=== PATIENT | female | born 1990 | race Caucasian/White ===

== ENCOUNTER 2021-07-03 17:31 | Emergency (ER) | payer SELFPAY ==
[~2021-07-03] VITALS: Ht 167.6 cm; Wt 118.3 kg
[2021-07-03 17:50] VITALS: BP 147/88
== END 2021-07-03 18:54 | disposition left against medical advice (07) ==
LOC: M ED 17:31
DX: Z53.21 Procedure and treatment not carried out due to patient leaving prior to being seen by health care provider (principal)

== ENCOUNTER 2022-11-08 08:55 | Emergency (ER) | payer OTHER, SELFPAY ==
[~2022-11-08] VITALS: Ht 167.6 cm; Wt 103.5 kg
[2022-11-08] MEDS ORDERED: METF500T13 (09:17)
[2022-11-08] MEDS ORDERED: CEFD300C41 (09:17)
[2022-11-08] MEDS ORDERED: PRED20TA (09:17)
[2022-11-08] MEDS ORDERED: NALT50TA4 (09:17)
[2022-11-08] MEDS ORDERED: LEXA1TAB2 (09:17)
[2022-11-08] MEDS ORDERED: NS 1,000 ML IV ONE (11:30)
[2022-11-08] MEDS ORDERED: ACETAMINOPHEN 1000MG 100ML IV BAG IV ONE (11:30)
[2022-11-08 12:12] LABS: BASO % 0.2 % (0.0-1.0); EOS # 0.1 10^3/uL (0.0-0.5); EOS % 0.4 % (0.0-3.0); HEMATOCRIT 40.3 % (36.0-47.0); HEMOGLOBIN 12.9 g/dl (12.0-15.5); LYMPH # 2.7 10^3/uL (1.5-5.0); LYMPH % 21.1 % (24.0-44.0); MEAN CORPUSCULAR HEMOGLOBIN 31.4 pg (27.0-33.0); MEAN CORPUSCULAR VOLUME 98.1 fl (80.0-96.0); MONO # 1.2 10^3/uL (0.0-0.8); MONO % 9.1 % (2.0-8.0); NEUTROPHILS # 8.7 10^3/uL (1.5-8.5); NEUTROPHILS % 68.7 % (36.0-66.0); PLATELET COUNT, AUTOMATED 256 10^3/uL (150-450); RED BLOOD COUNT 4.11 10^6/uL (4.00-5.40); WHITE BLOOD COUNT 12.7 10^3/uL (4.0-10.0)
[2022-11-08 12:25] LABS: INR 0.91; PROTHROMBIN TIME 12.5 SECONDS (12.5-14.5)
[2022-11-08 12:26] LABS: PARTIAL THROMBOPLASTIN TIME 25.8 SECONDS (24.8-34.2)
[2022-11-08] MEDS ORDERED: ISOVUE-370 76% 100ML VIAL As Ordered ONE (12:27)
[2022-11-08 12:40] LABS: LIPASE 25 U/L (12-53)
[2022-11-08 12:42] LABS: ALBUMIN 3.3 G/DL (3.2-5.2); ALKALINE PHOSPHATASE 68 U/L (46-116); ALT/SGPT 14 U/L (7.0-40); AST/SGOT 9 U/L (<34); BILIRUBIN,DIRECT 0.2 MG/DL (<0.4); BILIRUBIN,TOTAL 0.5 MG/DL (0.3-1.2); TOTAL PROTEIN 6.6 G/DL (5.7-8.2)
[2022-11-08 12:46] LABS: MONO SCRN NEGATIVE (NEGATIVE)
[2022-11-08] MEDS ORDERED: AMPICILLIN SOD/SULBACTAM SOD 3 GM in D5W MINI-BAG PLUS 100 ML IV ONE (13:20)
[2022-11-08] MEDS ORDERED: LIDOCAINE W/EPINEPHRINE 1% 20ML VIAL SC ONE (13:45)
[2022-11-08] MEDS ORDERED: ONDANSETRON 4MG 2ML VIAL As Ordered ONE (13:53)
[2022-11-08] MEDS ORDERED: ONDANSETRON 4MG 2ML VIAL IV ONE (14:10)
[2022-11-08 14:50] LABS: C REACTIVE PROTEIN QUANTITATIV < 0.40 MG/DL (<1.0)
[2022-11-08] MEDS ORDERED: AMOX875T2 PO ×2 (15:28→18:17)
[2022-11-08 15:53] LABS: ERYTHROCYTE SEDIMENTATION RATE 43 mm/hr (0-20)
[2022-11-08] MEDS ORDERED: KETOROLAC 30 MG/ML 1ML VIAL IV ONE (16:35)
[2022-11-08] MEDS ORDERED: ONDA4TAB6 PO (18:18)
[2022-11-08 18:19] VITALS: BP 131/75
== END 2022-11-08 18:21 | disposition home or self-care (01) ==
LOC: M ED 08:55
DX: U07.1 COVID-19 (principal); J02.0 Streptococcal pharyngitis; R59.9 Enlarged lymph nodes, unspecified; Z87.442 Personal history of urinary calculi; Z87.42 Personal history of other diseases of the female genital tract; Z79.899 Other long term (current) drug therapy; Z79.891 Long term (current) use of opiate analgesic
CPT/HCPCS: 36415; 70491; 80047; 80076; 83605; 83690; 84702; 85025; 85610; 85652; 85730; 86140; 86308; 87040; 87070; 87075; 87076; 87077; 87186; 87205; 87486; 87581; 87633; 87798; 96365; 96375; 99284; J1100; J2405